=== PATIENT | female | born 1940 | race Caucasian/White ===

== ENCOUNTER → 2017-05-10 | Outpatient (CLI) | payer MEDICARE, BC | LOC: MC.RAD 08:54 | DX: Z12.31 Encounter for screening mammogram for malignant neoplasm of breast (principal) ==

== ENCOUNTER → 2018-06-01 | Outpatient (CLI) | payer MEDICARE, BC | LOC: MC.RAD 14:19 | DX: Z12.31 Encounter for screening mammogram for malignant neoplasm of breast (principal) ==

== ENCOUNTER 2020-11-02 00:09 | Observation (INO) | payer MEDICARE, BC ==
[2020-11-02] VITALS (11 sets, daily range): BP systolic 117–163; BP diastolic 49–75; PULSE 62–79; TEMP 97.8–98.5
[~2020-11-02] VITALS: Ht 162.6 cm; Wt 69.4 kg
[2020-11-02 00:42] LABS: BASO % 0.4 % (0.0-2.0); EOS # 0.1 (0.0-0.7); EOS % 1.8 % (0-4.0); GRAN # 2.8 (1.4-6.5); GRAN % 35.6 % (42.2-75.2); HEMATOCRIT 39.5 % (37.0-47.0); LYMPH # 4.4 (1.2-3.4); LYMPH % 55.8 % (20.0-51.0); MEAN CELL VOLUME 100 fl (80.0-100.0); MEAN CORPUSCULAR HEMOGLOBIN 33 pg (27.0-31.0); MEAN CORPUSCULAR HGB CONC 33 g/dl (33.0-37.0); MEAN PLATELET VOLUME 8.8 fl (7.4-10.4); MONO # 0.5 (0.1-0.6); MONO % 6.3 % (1.7-9.3); PLATELET COUNT 190 K/mm3 (130-400); RED BLOOD COUNT 3.97 M/mm3 (4.10-5.30); REDCELL DISTRIBUTION WIDTH-CV 11.8 % (11.5-14.5)
[2020-11-02 00:55] LABS: ALANINE AMINOTRANSFERASE 15 U/L (4-34); ALBUMIN 4.1 gm/dL (3.5-5.0); ALKALINE PHOSPHATASE 91 U/L (50-136); ANION GAP 7 mmol/L (7-16); AST,SGOT 36 U/L (15-37); BILIRUBIN,TOTAL 0.5 mg/dL (0.0-1.0); BLOOD UREA NITROGEN 16 mg/dL (7-17); CARBON DIOXIDE 27 mmol/L (22-30); CHLORIDE 106 mmol/L (98-107); CREATININE, serum 0.65 (0.52-1.25); GLUCOSE 113 mg/dL (74-106); LIPASE 232 U/L (23-300); POTASSIUM 3.8 mmol/L (3.4-5.0); SODIUM 140 mmol/L (137-145); TOTAL PROTEIN 7.5 gm/dL (6.4-8.2)
[2020-11-02 01:07] LABS: TROPONIN-I < 0.012 ng/mL (0.000-0.035)
[2020-11-02 01:09] LABS: PROTHROMBIN TIME 11.5 SECONDS (9.7-12.8)
[2020-11-02 01:11] LABS: PARTIAL THROMBOPLASTIN TIME 33.6 SECONDS (26.0-37.0)
[2020-11-02 02:38] LABS: PH 8 (5-8); URINE APPEARANCE Cloudy; URINE BACTERIA None Seen /hpf; URINE BILIRUBIN Negative (NEGATIVE); URINE BLOOD 3+ (NEGATIVE); URINE COLOR Red; URINE GLUCOSE Negative (NEGATIVE); URINE KETONE Negative (NEGATIVE); URINE LEUKOCYTE ESTERASE Negative (NEGATIVE); URINE NITRATE Negative (NEGATIVE); URINE PROTEIN(semi-quant) 2+ (NEGATIVE); URINE RBC >50 /hpf; URINE UROBILINOGEN Negative (NEGATIVE); URINE WBC >50 /hpf
[2020-11-02 02:47] LABS: COLLECTION METHOD CLEAN CATCH
--- NOTE | 2020-11-02 03:47 | NUR ---
RECEIVED REPORT FROM ER NURSECHANDNI. WAITING ON PATIENT ARRIVAL.
--- NOTE | 2020-11-02 04:06 | NUR ---
PATIENT ADMITTED TO ROOM 344 VIA ER CART/ACCOMPANIED BY ER PCT. MCKOY CATH TO DD WITH CLAMPED BLADDER IRRIGATION IN PLACE. PATIENT DENIES ANY COMPLAINTS OR NEEDS AT TIME OF ADMISSION. PATIENT TRANSFERED FROM CART TO BED VIA STAND/PIVOT TRANSFER WITH NO PROBLEMS.
[2020-11-02] MEDS ORDERED: MULTIVITAMIN SEN PO (04:17)
[2020-11-02] MEDS ORDERED: CALCIUM CARBON650 M2 PO (04:19)
[2020-11-02] MEDS ORDERED: VITAMIN D31000 I1 PO (04:19)
--- NOTE | 2020-11-02 06:56 | NUR ---
Pt reports doing well, no questions. Call light within reach, will continue to monitor
--- NOTE | 2020-11-02 07:21 | NUR ---
CHANGE OF SHIFT REPORT GIVEN TO DAY SHIFT NURSE, WINTER BROWN.
[2020-11-02] MEDS ORDERED: OMEGA-3 1000 MG1 CAP PO (09:00)
--- NOTE | 2020-11-02 09:25 | NUR ---
Pt doing well, some complaints of some back pain. Reeves with red tinged output. at bedside, Dr Potts in to see patient
--- NOTE | 2020-11-02 09:43 | NUR ---
Consent signed and Luis Miguel here to get patient for surgery
--- NOTE | 2020-11-02 11:33 | NUR ---
Pt arrived to the floor from PACU. She is alert and oriented, although drowsy. is present in the room. Pt reports not having any pain, coffey draining pink tinged output. Reoriented pt to her room, educated on meals, lunch ordered. VSS, call light within reach, will continue to monitor
--- NOTE | 2020-11-02 14:46 | NUR ---
Pt continues to do well. She has tolerated a general lunch with no complaints. Output is a light pink in color, no clots noted. No pain complaints. Discussed catheter care with patient and . No needs verbalized, will continue to monitor
[2020-11-02] MEDS ORDERED: BACTRIM DS 8001 TAB PO (15:53)
--- NOTE | 2020-11-02 16:51 | NUR ---
Reviewed coffey care and cath care with patient. Assisted her with switching the coffey bag over to a leg bag. Pt and her both verbalized understanding. INT removed from left AC and pt escorted out at this time
== END 2020-11-02 16:54 | disposition home or self-care (01) ==
LOC: COL.ER 00:09 → SURG 03:11
PROVIDERS: Emergency Medicine; ADMIT Urology
DX: D49.4 Neoplasm of unspecified behavior of bladder (principal); N32.89 Other specified disorders of bladder; R31.0 Gross hematuria; R33.9 Retention of urine, unspecified; M19.90 Unspecified osteoarthritis, unspecified site; Z90.710 Acquired absence of both cervix and uterus; Z79.899 Other long term (current) drug therapy; Z20.822 Contact with and (suspected) exposure to COVID-19; Z85.828 Personal history of other malignant neoplasm of skin
CPT/HCPCS: C1769; C9113; G0378; J0690; J1100; J1885; J2270; J2405; J2704; J2765; J7030; J7120; Q9967

== ENCOUNTER 2021-09-02 14:58 | Inpatient (IN) | payer MEDICARE, BC ==
[~2021-09-02] VITALS: Ht 160 cm; Wt 65.2 kg
[~2021-09-02 14:58] MED LIST: ASPI325T6 PO; BACTRIM DS 8001 TAB PO; CALCIUM CARBON650 M2 PO; MULTIVITAMIN SEN PO; OMEGA-3 1000 MG1 CAP PO; ROXICODONE 55 MG/TAB PO; TYLENOL 500MG500 MG PO; VITAMIN C500 MG PO; VITAMIN D31000 I1 PO
[2021-09-02 18:00] VITALS: BP 123/48; PULSE 81; TEMP 98.3
--- NOTE | 2021-09-02 19:00 | NUR ---
RECEIVED CHANGE OF SHIFT REPORT FROM DAY SHIFT RN. EATING SUPPER WHILE LAYING IN BED WITH EXIT ALARM ON, CALL LIGHT WITHIN REACH. DENIES ANY NEEDS DURING REPORT.
[2021-09-03 05:25] VITALS: BP 126/49; PULSE 74; TEMP 98.1
--- NOTE | 2021-09-03 07:00 | NUR ---
CHANGE OF SHIFT REPORT GIVEN TO DAY SHIFT RNRIKA.
--- NOTE | 2021-09-03 09:26 | NUR ---
PT ASSESSED. NO COMPLAINTS OF PAIN OR DYSPNEA. NO SIGNS OR SYMPTOMS OF DISTRESS. CALL LIGHT WITHIN REACH
[2021-09-03 09:45] LABS: BASO % 0.4 % (0.0-2.0); EOS # 0.1 K/mm3 (0.0-0.7); EOS % 0.9 % (0.0-4.0); GRAN # 4.8 K/mm3 (1.4-6.5); GRAN % 68.9 % (42.2-75.2); HEMATOCRIT 29.1 % (37.0-47.0); HEMOGLOBIN 9.8 g/dl (12.5-16.0); LYMPH # 1.5 K/mm3 (1.2-3.4); LYMPH % 21.7 % (20.0-51.0); MEAN CELL VOLUME 98 fl (80.0-100.0); MEAN CORPUSCULAR HEMOGLOBIN 33 pg (27-31); MEAN CORPUSCULAR HGB CONC 34 g/dl (33.0-37.0); MEAN PLATELET VOLUME 8.6 fl (7.4-10.4); MONO # 0.5 K/mm3 (0.1-0.6); MONO % 7.8 % (1.7-9.3); PLATELET COUNT 121 K/mm3 (130-400); RED BLOOD COUNT 2.97 M/mm3 (4.10-5.30)
--- NOTE | 2021-09-03 11:34 | NUR ---
SW met with the patient to complete intake, as the patient is new to [facility]. The patient lives in [place] with her , Tate (ph#[phone]). She reports independence with ADLs and does not have any DME. She reports that she will likely need a FWW upon discharge. The patient's PCP is Dr. Damien Cao and she receives her medications from [facility] and [facility]. She reports no difficulties obtaining her meds. The patient does not have a DPOA-HC in EMR, but she states that she does have one completed and that her PCP's office should have a copy. She reports that she designated her and then daughter. SW contact Tamar, case aide, at [facility] and requested a copy. The patient reports that therapy has been going well so far. She had no concerns for SW at this time. SW to continue to follow.
--- NOTE | 2021-09-03 11:52 | NUR ---
SW received the patient's DPOA-HC and Living Will. The patient's DPOA-HC is her daughter, Kasia Garcia (ph#[phone]). SW placed the documents in the patient's chart.
[2021-09-03 18:00] VITALS: BP 121/51; PULSE 90; TEMP 98.2
--- NOTE | 2021-09-03 19:00 | NUR ---
RECEIVED CHANGE OF SHIFT REPORT FROM DAY SHIFT RN.
[2021-09-04 04:03] VITALS: BP 125/59; PULSE 62; TEMP 97.9
--- NOTE | 2021-09-04 06:54 | NUR ---
Report received from KEVIN Givens. Patient is sleeping in bed. Call light and bedside table are within reach. Will continue to monitor patient throughout shift.
--- NOTE | 2021-09-04 07:05 | NUR ---
CHANGE OF SHIFT REPORT GIVEN TO DAY SHIFT HANY BROWN
[2021-09-04 16:44] VITALS: BP 133/58; PULSE 90; TEMP 98.2
[2021-09-05 05:35] VITALS: BP 125/59; PULSE 91; TEMP 98.5
--- NOTE | 2021-09-05 06:50 | NUR ---
Report received from KEVIN Sears. Patient is sleeping in bed. Call light and bedside table are within reach. Will continue to monitor patient throughout shift.
--- NOTE | 2021-09-05 08:53 | NUR ---
Patient complains of a cough x 24 hours. Patient stated she had sputum on the first day that was grayish in color but nothing since.
--- NOTE | 2021-09-05 15:46 | NUR ---
Patient called and stated she was having chest pain. This nurse took a set of vital signs. BP: 126/61, SPO2 95%, pulse: 79, temp 97.9 and respiratory 14. Patient also c/o head ache. Patient denies SOB, lightheadedness or dizziness. Patient also denies any radiating pain in left arm, no tightness in chest, or the feeling of an elephant sitting on her chest. Patient has just stated she feels whatever she was experiencing has no passed. This nurse will continue to monitor patient throughout shift.
[2021-09-05 15:52] VITALS: BP 126/61; PULSE 79; TEMP 97.9
[2021-09-05 17:25] VITALS: BP 125/62; PULSE 85; TEMP 97.7
--- NOTE | 2021-09-06 05:21 | NUR ---
PT IN BED. ASSIST OF 1 FOR ADLs, TRANSFERS AND AMBULATION.
[2021-09-06 05:35] VITALS: BP 123/55; PULSE 89; TEMP 98.2
--- NOTE | 2021-09-06 07:00 | NUR ---
awake and resting in bed, assisted up to bathroom and voids QS, then out and to recliner for breakfast, full assessment completed, see interventins for further info
--- NOTE | 2021-09-06 07:55 | NUR ---
had breakfast and tolerated well, remains up in chair, denies needs
--- NOTE | 2021-09-06 09:30 | NUR ---
sitting up in chair looking at her computer, assisted up to bathroom and then back to bed
--- NOTE | 2021-09-06 11:30 | NUR ---
remains up in chair and talking ohpnone
--- NOTE | 2021-09-06 13:15 | NUR ---
ambulated in raphael with CLINICAL ADMINISTRATIVE COORDINATOR then back to room and into bed to rest
[2021-09-06 16:11] VITALS: BP 127/55; PULSE 73; TEMP 98.4
--- NOTE | 2021-09-06 16:15 | NUR ---
sitting up in bed reading a book, denies needs
--- NOTE | 2021-09-06 17:15 | NUR ---
sitting up in chair eating supper
--- NOTE | 2021-09-06 18:33 | NUR ---
shift report given to KEVIN Pena
--- NOTE | 2021-09-06 19:00 | NUR ---
RECEIVED CHANGE OF SHIFT REPORT FROM DAY SHIFT RN.
[2021-09-07 05:13] VITALS: BP 120/51; PULSE 72; TEMP 98.1
--- NOTE | 2021-09-07 07:39 | NUR ---
CHANGE OF SHIFT REPORT GIVEN TO DAY SHIFT RNANA MARIA.
--- NOTE | 2021-09-07 07:45 | NUR ---
Pt assessment complete. Pt sitting up in bed upon entry, has just finished her breakfast. She is A/O x4. Her breathing is even and unlabored on RA. Pt denies any SOB. Reports she woke up with some back pain, PRN Tylenol administered by shift production supervisor this AM. Pt assisted in ambulating to the restroom with SBA and the use of a walker. Pt left sitting on the side of the bed with bed alarms in place. No further needs at this time. Call light within reach.
[2021-09-07 17:41] VITALS: BP 124/51; PULSE 85
--- NOTE | 2021-09-07 17:46 | NUR ---
Pt mod I in room, ambulating well with use of walker. Minimal pain. Sitting up in the chair reading. No needs at this time. Call light within reach.
--- NOTE | 2021-09-07 20:00 | NUR ---
Report received, assumed care for financial institution manager. Assessment complete. A&Ox4. Denies pain/nausea/shortness of breath. VS remain stable. Dressing to left hip-gauze/tegaderm-CDI. Radha perera. IS at bedside-using proper technique. Refusing ICE states its to cold. Denies current needs. Call light in reach. Will monitor.
--- NOTE | 2021-09-08 00:10 | NUR ---
Resting in bed eyes closed. NO s/s of pain noted.
--- NOTE | 2021-09-08 05:43 | NUR ---
Rested well this shift. Denied nausea/shortness of breath. VS remained stable. Received tylenol x1 for left hip pain. Denies current needs. Call light in reach. Will monitor.
[2021-09-08 05:47] VITALS: BP 136/61; PULSE 73; TEMP 98
--- NOTE | 2021-09-08 06:57 | NUR ---
Report received from KEVIN Castro. Patient is sleeping in bed. Call light and bedside table are within reach. Will continue to monitor patient throughout shift.
--- NOTE | 2021-09-08 15:00 | NUR ---
Patient has completed all therapies and is resting in recliner. Call light and bedside table are within reach.
[2021-09-08 17:57] VITALS: BP 135/46; PULSE 90; TEMP 98
--- NOTE | 2021-09-08 21:00 | NUR ---
Pt. sitting up in bed. Pt. is A&OX3, assessment complete. Dressing to lt. hip CDI. Pt. reports pain at a 2 on pain scale, and given Tylenol. Pt. denies further needs, call light within reach.
[2021-09-09 05:08] VITALS: BP 133/56; PULSE 72; TEMP 97.5
--- NOTE | 2021-09-09 06:53 | NUR ---
Patient is sleeping in bed. Call light and bedside table are within reach. Will continue to monitor patient throughout shift.
[2021-09-09] MEDS ORDERED: NORCO 325 MG-51 TAB PO (08:59)
[2021-09-09] MEDS ORDERED: ASPI325T6 PO (08:59)
--- NOTE | 2021-09-09 11:13 | NUR ---
Verified with the patient that she would like to do her therapy at [facility] and verified the location. SW touched base with [facility] ( [address] Patient's discharge orders faxed to [phone]. Staff reports that they will call the patient to schedule her appointment. Notified that the patient is discharging today. Patient notified that the facility will call her to schedule her appointment. Discharge plan: Home with OP PT
--- NOTE | 2021-09-09 12:24 | NUR ---
Patient health summary, discharge summary and home med printed and reviews with patient. Stress importance of follow up appointments. Reviewed medications. Patient gathered own personal belongings and they have been cleared from room to include cell phone and tank charger. Patient transport via by [employer] and seatbelted for ride home.
== END 2021-09-09 12:30 | disposition home or self-care (01) | DRG 561 ==
PROVIDERS: ADMIT Physical Medicine & Rehabilitation Sports Medicine
DX: S72.145D Nondisplaced intertrochanteric fracture of left femur, subsequent encounter for closed fracture with routine healing (principal); R26.89 Other abnormalities of gait and mobility; D64.89 Other specified anemias; R32 Unspecified urinary incontinence; Z73.6 Limitation of activities due to disability; W01.0XXD Fall on same level from slipping, tripping and stumbling without subsequent striking against object, subsequent encounter; Y92.009 Unspecified place in unspecified non-institutional (private) residence as the place of occurrence of the external cause; Z79.891 Long term (current) use of opiate analgesic; Z79.82 Long term (current) use of aspirin; Z79.899 Other long term (current) drug therapy

== ENCOUNTER → 2022-05-13 | Outpatient (CLI) | payer MEDICARE, BC ==
[~2022-05-13] MED LIST changes: +NORCO 325 MG-51 TAB PO
== END ==
LOC: COL.LAB 11:34
DX: R07.9 Chest pain, unspecified (principal)